=== PATIENT | male | born 1975 | race Caucasian/White ===

== ENCOUNTER 2021-11-24 13:29 | Emergency (ER) | payer MEDICAID ==
[~2021-11-24] VITALS: Ht 177.8 cm; Wt 81.6 kg
[2021-11-24 13:29] VITALS: BP 140/90
--- NOTE | 2021-11-24 13:45 | NUR ---
PT BIBA BLS C/O LEFT FOOT PAIN SINCE LAST NIGHT. PATIENT STATES HE WOKE UP LAST NIGHT AND STEPPED OUT OF HIS TENT AND STEPPED ON A SHARP OBJECT. PT HAS PUNCTURE WOUND TO LEFT FOOT. NO ACTIVE BLEEDING AT THIS TIME. PT HAS HX CVA WITH LEFT SIDED DEFICIT, DM, A. FIB AND NON COMPLIANT ON MEDICATIONS.
--- NOTE | 2021-11-24 15:35 | NUR ---
XRAY AT BEDSIDE
[2021-11-24] MEDS: KETOROLAC 30 MG/ML VIAL IM ONE (15:59)
[2021-11-24] MEDS ORDERED: CEPH-588 PO (17:13)
[2021-11-24 17:35] VITALS: BP 134/79
--- NOTE | 2021-11-24 17:35 | NUR ---
Patient discharged with v/s stable. Written and verbal after care instructions FOR WOUNDCARE given and explained. Patient alert, oriented and verbalized understanding of instructions. Ambulatory with steady gait. All questions addressed prior to discharge. ID band removed. Patient advised to follow up with PMD. Rx of KEFLEX given. Opportunity to ask questions provided and answered.
--- NOTE | 2021-11-24 18:54 | NUR ---
The patient's care was reviewed and supervised by Sarah Bell RN.
== END 2021-11-24 17:35 | disposition home or self-care (01) ==
LOC: MED 13:29
DX: S91.332A Puncture wound without foreign body, left foot, initial encounter (principal); X58.XXXA Exposure to other specified factors, initial encounter; Y93.89 Activity, other specified; Y92.89 Other specified places as the place of occurrence of the external cause; Y99.8 Other external cause status
CPT/HCPCS: 73630; 90471; 90715; 96372; 99284; J1885; Q0092